=== PATIENT | male | born 1955 | race Caucasian/White ===

== ENCOUNTER 2020-03-18 07:35 | Emergency (ER) | payer MEDICARE ==
--- NOTE | 2020-03-18 08:51 | RAD ---
RADIOGRAPH CHEST 1 VIEW: DATE: 03/18/2020 HISTORY: 64-year-old male with fever FINDINGS: There is no airspace density, pulmonary edema, or pneumothorax. The lateral costophrenic angles are n ot effaced. IMPRESSION: No acute pulmonary findings.
[2020-03-18] MEDS ORDERED: Acetaminophen 500 MG TAB ONE (08:58)
[2020-03-18 09:20] LABS: ALT (SGPT) 38 U/L (8-55); AST (SGOT) 40 U/L (5-34); Albumin 3.7 g/dL (3.4-4.8); Alkaline Phosphatase 49 U/L (40-110); Anion Gap 28 mmol/L (10-20); BUN (Urea Nitrogen) 78 mg/dL (8.4-25.7); Bilirubin, Total 0.5 mg/dL (0.2-1.2); Calc. Creatinine Clearance 0 mL/min (70-130); Calcium 8.6 mg/dL (7.8-10.44); Carbon Dioxide 15 mmol/L (23-31); Chloride 92 mmol/L (98-107); Estimated GFR-MDRD 3; Globulin 3.9 g/dL (2.4-3.5); Glucose 159 mg/dL (80-115); Potassium 6.3 mmol/L (3.5-5.1); Protein, Total 7.6 g/dL (5.8-8.1); Sodium 129 mmol/L (136-145)
[2020-03-18 09:44] LABS: #Basophils 0.1 thou/uL (0.0-0.2); #Lymphocytes 1.1 thou/uL (1.20-3.40); #Monocytes 0.7 thou/uL (0.11-0.59); #Neutrophils 5.6 thou/uL (1.40-6.50); %Eosinophils 0.1 % (0.0-10.0); %Lymphocytes 14.7 % (21.0-51.0); %Monocytes 8.7 % (0.0-10.0); %Neutrophils 75.5 % (42.0-75.0); Hemoglobin 10.3 g/dL (14.0-18.0); Mean Corpuscular HGB CONC 32.2 g/dL (32.0-36.0); Mean Corpuscular Hemoglobin 32.3 pg (27.0-31.0); Mean Corpuscular Volume 100.3 fL (78.0-98.0); Mean Platelet Volume 6.7 fL (7.4-10.4); Platelet Count 199 thou/uL (130-400); RBC Distribution Width 15.3 % (11.5-14.5); White Blood Cell (WBC) Count 7.4 thou/uL (4.8-10.8)
== END 2020-03-18 11:27 | disposition short-term general hospital (02) ==
LOC: MADERS 07:35
DX: R50.9 Fever, unspecified (principal); J02.9 Acute pharyngitis, unspecified; R51.9 Headache, unspecified; I12.0 Hypertensive chronic kidney disease with stage 5 chronic kidney disease or end stage renal disease; N18.6 End stage renal disease; I25.10 Atherosclerotic heart disease of native coronary artery without angina pectoris; Z79.899 Other long term (current) drug therapy
CPT/HCPCS: 71045; 80053; 85025; 87040; 87081; 87430; 94760